=== PATIENT | male | born 1980 | race Caucasian/White ===

== ENCOUNTER 2024-07-07 19:05 | Emergency (ER) | payer OTHER, SELFPAY ==
[2024-07-07 19:06] VITALS: BP 173/114
--- NOTE | 2024-07-07 19:38 | ED.GENMED ---
History of Present Illness
General
Chief Complaint: Musculo-Skeletal Complaint
Source: patient
Time Seen by Provider: 07/07/24 19:33
History of Present Illness
History of Present Illness:
44-year-old male with no significant past medical history presenting to the emergency department for evaluation after he was attempting to lift a heavy plant pot when he felt a snapping sensation in his left bicep with a noted deformity. Patient
came to the ER for further evaluation of the pain. He notes continued deformity. No other injuries. Denies any history of similar.
Past History
Past History
ED Past Medical History: None
ED Past Surgical History: None
Social History
Tobacco: Non-smoker
Alcohol: Occasional
Drug: None
Personal:
Living: with family
Review of Systems
Review of Systems
All Other Systems: ROS reviewed and negative except as documented in HPI and ROS
Phy Exam
Physical Exam
Physical Exam:
GENERAL: Alert , in no apparent distress
EYE: conjunctiva clear
Head: Normocephalic atraumatic
NECK: Supple,
ENT: mmm.
LUNGS: no acute respiratory distress
NEUROLOGICAL: Alert and oriented
SKIN: Warm and dry, skin intact.
MUSCULOSKELETAL: well perfused. Deformity to the left bicep. Easily palpable radial pulse. Sensation grossly intact to light touch. Remainder of extremity is warm and well-perfused and neurovascularly intact.
PSYCH: Normal and appropriate interaction.
Scores
Heart Failure Risk
Heart Failure Risk Score: Not Applicable
Heart Score for Chest Pain Patients
STEMI patient?: Not applicable
Withdrawal Assessment of Alcohol
Withdrawal Assessment Completed?: Not applicable
Course
Orders/Labs/Results
Orders:
Orders
07/07/24 19:38
Sling Left-Treatment ONCE
Vital Signs
Initial and Last Documented VS:
Initial Vital Signs
Temp Pulse Resp BP Pulse Ox
97.6 F 72 18 173/114 100
07/07/24 19:06 07/07/24 19:06 07/07/24 19:06 07/07/24 19:06 07/07/24 19:06
Last Documented Vital Signs
Temp Pulse Resp BP Pulse Ox
97.6 F 72 18 173/114 100
07/07/24 19:06 07/07/24 19:06 07/07/24 19:06 07/07/24 19:06 07/07/24 19:06
MDM/Problems Addressed
Differential Diagnosis Includes:
Biceps tendon tear/rupture, no concern for fracture, no concern for vascular or nerve complication
MDM/Problems Addressed:
44-year-old male presenting to the emergency department for evaluation of left biceps pain and deformity with suspected biceps tendon rupture. Exam seems to be most consistent with tendon rupture. Will place patient in sling. NSAIDs/Tylenol as
needed for pain. Information for orthopedics provided. Patient is otherwise stable for discharge home.
*Pulse Oximetry
Patient hypoxic: no
*Critical Care Note
Total Time (30-74mins, 75-104mins- exclusive of procedures): Not Applicable
ED Attending Note
-
Portions of this chart may have been created with voice recognition software.� Occasional wrong word or��sound alike� substitutions may have occurred due to the inherent limitations of voice recognition software.
Discharge Plan
Departure
Patient Disposition: Home (Routine Discharge)
Date of Disposition: 07/07/24
Time of Disposition: 19:38
Patient with high blood pressure during this ER visit?: Yes
Discharge Problem:
Biceps tendon rupture
Instructions: Biceps Tendon Rupture (DC)
Referrals:
Ford Duffy MD [Active] - (Please call in the morning for appointment)
Interventions
Interventions:
*Risk Screen - Suicide Last Done: 07/07/24 19:06
*General Assessment Last Done: 07/07/24 19:06
*Neglect/Abuse Screening Last Done: 07/07/24 19:06
ED- Fall Risk Assessment Last Done: 07/07/24 19:38
*ED COVID-19 Vaccine History Last Done: 07/07/24 19:06
*Nursing Disposition Last Done: 07/07/24 19:57
ED-Musculoskeletal Assessment Last Done: 07/07/24 19:37
Discharge Date and Time
Discharge Date/Time: 07/07/24 19:52
Print Language: SLOVENIAN
== END 2024-07-07 19:52 | disposition home or self-care (01) ==
LOC: EMR 19:05
PROVIDERS: EMERGENCY PHYSICIAN Emergency Medicine
DX: S46.212A Strain of muscle, fascia and tendon of other parts of biceps, left arm, initial encounter (principal); X50.0XXA Overexertion from strenuous movement or load, initial encounter
CPT/HCPCS: 99282